=== PATIENT | female | born 1955 | race African-American/Black ===

== ENCOUNTER 2022-09-11 18:49 | Emergency (ER) | payer SELFPAY ==
[~2022-09-11] VITALS: Ht 170.2 cm; Wt 95.4 kg
[2022-09-11 18:49] VITALS: BP 139/72
[2022-09-11 19:51] LABS: Basophils # (auto) 0 10 ^3/uL (0-0.2); Basophils % (auto) 0.8 % (0.0-2.0); Eosinophils # (auto) 0.1 10 ^3/uL (0-0.8); Eosinophils % (auto) 3.5 % (0.0-7.0); Hematocrit 33.4 % (36.0-46.0); Lymphocytes % (auto) 32.2 % (10.0-50.0); Mean Corpuscular Hemoglobin 29.2 pg (28.0-32.0); Mean Corpuscular Hgb Conc. 32.8 g/dL (32.0-36.0); Monocytes # (auto) 0.4 10 ^3/uL (0-1.3); Monocytes % (auto) 12.8 % (0.0-12.0); Neutrophils # (auto) 1.6 10 ^3/uL (1.6-8.6); Neutrophils % (auto) 50.7 % (37.0-80.0); Nucleated Red Blood Cells % 0.6 %; Red Blood Cells 3.76 10^6/uL (4.0-5.20); Red Cell Distribution Width 14.8 % (11.8-14.3); White Blood Cell 3.1 10^3/uL (4.4-10.8)
[2022-09-11 20:10] LABS: Albumin 3.6 g/dL (3.4-5.0); Calcium 9.2 mg/dL (8.5-10.1)
[2022-09-11 20:14] LABS: BUN/Creatinine Ratio 16.9 (10.0-20.0); Bilirubin, Total 0.4 mg/dL (0.2-1.0); Total Protein 7.4 g/dL (6.4-8.2)
== END 2022-09-11 20:54 | disposition left against medical advice (07) ==
LOC: EDBD 18:49 → ER 18:57
DX: R53.1 Weakness (principal); R60.9 Edema, unspecified; R07.89 Other chest pain; Z53.21 Procedure and treatment not carried out due to patient leaving prior to being seen by health care provider
CPT/HCPCS: 36415; 80053; 84484; 85025

== ENCOUNTER 2022-09-12 08:59 | Inpatient (IN) | payer MEDICARE, MEDICAID ==
[~2022-09-12] VITALS: Ht 167.6 cm; Wt 104.4 kg
[2022-09-12 10:36] LABS: Albumin 3.5 g/dL (3.4-5.0); Potassium 4.3 mmol/L (3.5-5.1)
[2022-09-12 10:39] LABS: BUN/Creatinine Ratio 17.2 (10.0-20.0); Bilirubin, Total 0.4 mg/dL (0.2-1.0); Total Protein 6.9 g/dL (6.4-8.2)
[2022-09-12 11:28] LABS: Basophils # (auto) 0 10 ^3/uL (0-0.2); Basophils % (auto) 0.9 % (0.0-2.0); Eosinophils # (auto) 0.1 10 ^3/uL (0-0.8); Eosinophils % (auto) 3.4 % (0.0-7.0); Hematocrit 34.5 % (36.0-46.0); Hemoglobin 11.2 g/dL (12.2-16.2); Lymphocytes # (auto) 0.9 10 ^3/uL (0.4-5.4); Lymphocytes % (auto) 28.2 % (10.0-50.0); Mean Corpuscular Hemoglobin 29.1 pg (28.0-32.0); Mean Corpuscular Hgb Conc. 32.4 g/dL (32.0-36.0); Mean Corpuscular Volume 89.9 fL (80.0-100.0); Monocytes # (auto) 0.4 10 ^3/uL (0-1.3); Monocytes % (auto) 11.9 % (0.0-12.0); Neutrophils # (auto) 1.8 10 ^3/uL (1.6-8.6); Neutrophils % (auto) 55.6 % (37.0-80.0); Nucleated Red Blood Cells % 0.1 %; Red Blood Cells 3.83 10^6/uL (4.0-5.20); Red Cell Distribution Width 14.6 % (11.8-14.3); White Blood Cell 3.2 10^3/uL (4.4-10.8)
[2022-09-12] MEDS ORDERED: FUROSEMIDE 40 MG/4 ML VIAL IV ONE (11:45)
[2022-09-12] MEDS ORDERED: cefTRIAXone 1GM/50ML D5W 50 ML IV ONE (13:00)
[2022-09-12] MEDS ORDERED: CLINDAMYCIN 600MG IV 50 ML IV ONE (13:00)
[2022-09-12] MEDS ORDERED: CLINDAMYCIN HCL 150 MG CAP PO ONE (14:30)
[2022-09-12] MEDS ORDERED: HYDROmorphone HCL 2 MG/ML VL/or syr IV ONE (16:00)
[2022-09-12] MEDS: HYDROcodone-ACET 5/325MG TAB PO PRN (19:27)
[2022-09-12 22:00] VITALS: BP 95/52
[2022-09-12] MEDS ORDERED: CLINDAMYCIN 600MG IV 50 ML IV SCH (22:00)
[2022-09-12 23:07] VITALS: BP 95/52
[2022-09-13] MEDS: HYDROcodone-ACET 5/325MG TAB PO PRN ×4 (00:24→22:01)
[2022-09-13] MEDS ORDERED: KETOROLAC TROMETH 30 MG/ML 1ML VIAL IV ONE (01:00)
[2022-09-13 05:00] VITALS: BP 134/67
[2022-09-13 09:00] VITALS: BP 109/47
[2022-09-13 10:11] LABS: Basophils # (auto) 0 10 ^3/uL (0-0.2); Basophils % (auto) 0.7 % (0.0-2.0); Eosinophils # (auto) 0.1 10 ^3/uL (0-0.8); Eosinophils % (auto) 3.6 % (0.0-7.0); Lymphocytes # (auto) 0.8 10 ^3/uL (0.4-5.4); Lymphocytes % (auto) 25.4 % (10.0-50.0); Mean Corpuscular Hemoglobin 29.6 pg (28.0-32.0); Mean Corpuscular Hgb Conc. 33.2 g/dL (32.0-36.0); Mean Corpuscular Volume 89.2 fL (80.0-100.0); Monocytes # (auto) 0.4 10 ^3/uL (0-1.3); Monocytes % (auto) 13.3 % (0.0-12.0); Neutrophils # (auto) 1.7 10 ^3/uL (1.6-8.6); Nucleated Red Blood Cells % 0.4 %; Red Blood Cells 3.36 10^6/uL (4.0-5.20); Red Cell Distribution Width 14.3 % (11.8-14.3)
[2022-09-13] MEDS ORDERED: HYDROcodone-ACET 5/325MG TAB PO PRN (10:15)
[2022-09-13] MEDS ORDERED: VANCOMYCIN PER PHARMACY 0 MG IV SCH (10:15)
[2022-09-13] MEDS ORDERED: GABAPENTIN 300 MG CAP PO ONE (10:15)
[2022-09-13] MEDS ORDERED: VANCOMYCIN 1GM/250ML 250 ML IV ONE (10:30)
[2022-09-13 10:41] LABS: Albumin 2.8 g/dL (3.4-5.0); BUN/Creatinine Ratio 17.8 (10.0-20.0); Calcium 8.7 mg/dL (8.5-10.1); Potassium 3.8 mmol/L (3.5-5.1)
[2022-09-13 10:45] LABS: Bilirubin, Total 0.3 mg/dL (0.2-1.0)
[2022-09-13] MEDS: MORPHINE SULFATE INJ 2 MG/ml SYRG IV PRN ×3 (11:08→23:59)
[2022-09-13] MEDS: cefTRIAXone 1GM/50ML D5W 50 ML IV SCH (11:21)
[2022-09-13] MEDS: ENOXAPARIN SOD 40 MG/0.4 ML SYRINGE SC SCH (11:25)
[2022-09-13] MEDS: FUROSEMIDE 20 MG/2 ML VIAL IV SCH (11:25)
[2022-09-13 13:00] VITALS: BP 111/50
[2022-09-13] MEDS: GABAPENTIN 300 MG CAP PO SCH ×2 (16:24→21:54)
[2022-09-13 17:00] VITALS: BP 128/70
[2022-09-13 20:00] VITALS: BP 127/70
[2022-09-13 22:00] VITALS: BP 113/69
[2022-09-13] MEDS: VANCOMYCIN 1GM/250ML 250 ML IV SCH (23:53)
[2022-09-14] MEDS: HYDROcodone-ACET 5/325MG TAB PO PRN ×3 (03:58→22:39)
[2022-09-14 05:00] VITALS: BP 138/85
[2022-09-14 05:44] LABS: Basophils # (auto) 0 10 ^3/uL (0-0.2); Basophils % (auto) 1.1 % (0.0-2.0); Eosinophils # (auto) 0.1 10 ^3/uL (0-0.8); Eosinophils % (auto) 3.6 % (0.0-7.0); Hematocrit 30.9 % (36.0-46.0); Hemoglobin 10.4 g/dL (12.2-16.2); Lymphocytes # (auto) 1.1 10 ^3/uL (0.4-5.4); Lymphocytes % (auto) 32.3 % (10.0-50.0); Mean Corpuscular Hemoglobin 29.7 pg (28.0-32.0); Mean Corpuscular Hgb Conc. 33.7 g/dL (32.0-36.0); Mean Corpuscular Volume 88.2 fL (80.0-100.0); Monocytes # (auto) 0.5 10 ^3/uL (0-1.3); Monocytes % (auto) 14.9 % (0.0-12.0); Neutrophils # (auto) 1.6 10 ^3/uL (1.6-8.6); Neutrophils % (auto) 48.1 % (37.0-80.0); Nucleated Red Blood Cells % 0.1 %; Red Blood Cells 3.51 10^6/uL (4.0-5.20); Red Cell Distribution Width 14.7 % (11.8-14.3); White Blood Cell 3.3 10^3/uL (4.4-10.8)
[2022-09-14] MEDS: GABAPENTIN 300 MG CAP PO SCH ×3 (06:00→22:31)
[2022-09-14 06:10] LABS: BUN/Creatinine Ratio 23.9 (10.0-20.0); Calcium 9.3 mg/dL (8.5-10.1); Potassium 4.2 mmol/L (3.5-5.1)
[2022-09-14 08:10] VITALS: BP 126/50
[2022-09-14 08:45] VITALS: BP 126/50
[2022-09-14] MEDS: cefTRIAXone 1GM/50ML D5W 50 ML IV SCH (08:54)
[2022-09-14] MEDS: FUROSEMIDE 20 MG/2 ML VIAL IV SCH (10:00)
[2022-09-14] MEDS: ENOXAPARIN SOD 40 MG/0.4 ML SYRINGE SC SCH (10:00)
[2022-09-14] MEDS: MORPHINE SULFATE INJ 2 MG/ml SYRG IV PRN ×2 (11:00→20:07)
[2022-09-14] MEDS: VANCOMYCIN 1GM/250ML 250 ML IV SCH (11:50)
[2022-09-14 12:45] VITALS: BP 144/60
[2022-09-14 17:00] VITALS: BP_SYST 130; BP_SYST 138; BP_DIAS 71; BP_DIAS 73
[2022-09-14 20:00] VITALS: BP 101/54
[2022-09-15] VITALS (7 sets, daily range): BP systolic 99–115; BP diastolic 49–62
[2022-09-15] MEDS: VANCOMYCIN 1GM/250ML 250 ML IV SCH ×2 (00:19→13:30)
[2022-09-15] MEDS: GABAPENTIN 300 MG CAP PO SCH ×2 (06:00→14:00)
[2022-09-15] MEDS: HYDROcodone-ACET 5/325MG TAB PO PRN ×2 (09:07→14:45)
[2022-09-15] MEDS: cefTRIAXone 1GM/50ML D5W 50 ML IV SCH (09:08)
[2022-09-15] MEDS: FUROSEMIDE 20 MG/2 ML VIAL IV SCH (10:00)
[2022-09-15] MEDS: ENOXAPARIN SOD 40 MG/0.4 ML SYRINGE SC SCH (10:00)
[2022-09-15] MEDS ORDERED: TRAM50TA2 PO (10:12)
[2022-09-15] MEDS ORDERED: LEVO750T8 PO (10:12)
[2022-09-15] MEDS ORDERED: POTA-211 PO (10:12)
[2022-09-15] MEDS ORDERED: GABA-1250 PO (10:12)
[2022-09-15] MEDS ORDERED: FURO1TAB33 PO (10:12)
== END 2022-09-15 16:00 | disposition home or self-care (01) | DRG 299 ==
LOC: ER 08:59 → OVERFLOW 16:04 → CENTRAL 21:01
PROVIDERS: ADMIT Nurse Practitioner Family; ATTEND Internal Medicine
DX: I83.218 Varicose veins of right lower extremity with both ulcer of other part of lower extremity and inflammation (principal); I50.31 Acute diastolic (congestive) heart failure; L03.115 Cellulitis of right lower limb; L97.919 Non-pressure chronic ulcer of unspecified part of right lower leg with unspecified severity; L03.116 Cellulitis of left lower limb; E66.9 Obesity, unspecified; B95.2 Enterococcus as the cause of diseases classified elsewhere; B96.5 Pseudomonas (aeruginosa) (mallei) (pseudomallei) as the cause of diseases classified elsewhere; B96.89 Other specified bacterial agents as the cause of diseases classified elsewhere; Z79.899 Other long term (current) drug therapy; Z68.37 Body mass index [BMI] 37.0-37.9, adult; Z59.00 Homelessness unspecified; G62.9 Polyneuropathy, unspecified; Z91.199 Patient's noncompliance with other medical treatment and regimen due to unspecified reason
CPT/HCPCS: 36415; 71045; 80048; 80053; 80061; 80202; 83036; 83605; 83880; 84443; 84484; 85025; 87040; 87077; 87186; 87205; 93005; 93306; 96365; 96366; 96375; G0378; J0696; J1885